=== PATIENT | male | born 1945 | race Caucasian/White ===

== ENCOUNTER 2024-01-28 14:57 | Emergency (ER) | payer MEDICARE, MEDICAID ==
[~2024-01-28] VITALS: Ht 167.6 cm; Wt 75.0 kg
[~2024-01-28 14:57] MED LIST: ATOR20TA PO; RIVA20TA PO; TAMS-11 PO
[2024-01-28 17:17] VITALS: O2SAT 99
[2024-01-28 19:24] LABS: BASOPHILS % 0.5 % (0.0-2.0); EOSINOPHILS % 0.6 % (0.0-5.0); HEMATOCRIT. 32.4 % (42.0-52.0); HEMOGLOBIN. 10.9 g/dL (14.0-18.0); LYMPHOCYTES % 19.4 % (20.0-50.0); MEAN CORPUSCULAR HEMOGLOBIN 33.6 pg (28.0-32.0); MEAN CORPUSCULAR HGB CONC 33.7 g/dL (31.0-37.0); MEAN CORPUSCULAR VOLUME 99.6 fL (80.0-94.0); MONOCYTES % 10.6 % (2.0-8.0); NEUTROPHILS % 68.9 % (40.0-76.0); PLATELET 224 x1000/uL (130-400); RED BLOOD CELL COUNT 3.25 mill/uL (4.7-6.1); WHITE BLOOD COUNT 8.5 x1000/uL (4.5-11.0)
[2024-01-28 19:35] LABS: INR 1.1; PROTHROMBIN TIME 11.7 sec (9.6-11.0)
[2024-01-28 19:41] LABS: POTASSIUM 4.5 mEq/L (3.5-5.1)
[2024-01-28 19:42] LABS: CALCIUM 9.1 mg/dL (8.7-10.4)
[2024-01-28 19:47] LABS: CREATININE 1.7 mg/dL (0.6-1.3)
[2024-01-28] MEDS ORDERED: HYDR-4001 MT (23:33)
[2024-01-28] MEDS ORDERED: LIDO1ADH23 TP (23:34)
[2024-01-28] MEDS: HYDROCODONE/ACETAMINOPHEN 5/325MG TABLET PO ONE (23:53)
[2024-01-28 23:58] VITALS: BP 129/64; PULSE 80; RESP 14; TEMP 37.05852; O2SAT 99
[2024-01-28] MEDS: LIDOCAINE 5% PATCH TOP STA (23:58)
== END 2024-01-29 00:02 | disposition home or self-care (01) ==
LOC: ER 14:57
DX: M19.071 Primary osteoarthritis, right ankle and foot (principal); I10 Essential (primary) hypertension; I48.91 Unspecified atrial fibrillation
CPT/HCPCS: 36415; 73562; 73590; 73610; 73630; 80048; 85025; 93970; 99284

== ENCOUNTER 2024-03-25 07:40 | Emergency (ER) | payer MEDICARE, MEDICAID ==
[~2024-03-25] VITALS: Ht 172.7 cm; Wt 91.0 kg
[~2024-03-25 07:40] MED LIST changes: +HYDR-4001 MT; +LIDO1ADH23 TP
[2024-03-25 07:45] VITALS: O2SAT 99
[2024-03-25 08:26] LABS: BASOPHILS % 0.7 % (0.0-2.0); DIFFERENTIAL COMMENT 0; EOSINOPHILS % 1.1 % (0.0-5.0); LYMPHOCYTES % 13.6 % (20.0-50.0); MEAN CORPUSCULAR HEMOGLOBIN 33.6 pg (28.0-32.0); MEAN CORPUSCULAR HGB CONC 32.3 g/dL (31.0-37.0); MEAN CORPUSCULAR VOLUME 103.9 fL (80.0-94.0); MEAN PLATELET VOLUME 7.6 fl (7.4-10.4); MONOCYTES % 7.5 % (2.0-8.0); NEUTROPHILS % 77.1 % (40.0-76.0); PLATELET 195 x1000/uL (130-400); RED BLOOD CELL COUNT 2.98 mill/uL (4.7-6.1); RED CELL DISTRIBUTION WIDTH 18.9 % (11.6-14.6); WHITE BLOOD COUNT 10.6 x1000/uL (4.5-11.0)
[2024-03-25 08:34] LABS: CHLORIDE 114 mEq/L (98-107); POTASSIUM 4.6 mEq/L (3.5-5.1); SODIUM 143 mEq/L (136-145)
[2024-03-25 08:35] LABS: CARBON DIOXIDE 23 mEq/L (21-32)
[2024-03-25 08:36] LABS: CALCIUM 9.2 mg/dL (8.7-10.4)
[2024-03-25 08:40] LABS: GLUCOSE 106 mg/dL (70-105); UREA NITROGEN BLOOD 19 mg/dL (9-23)
[2024-03-25 09:50] LABS: CLARITY URINE CLEAR (CLEAR); COLOR URINE DARK YELLOW (YELLOW); GLUCOSE URINE NEGATIVE (NEGATIVE); KETONES URINE NEGATIVE (NEGATIVE); LEUKOCYTE ESTERASE URINE NEGATIVE (NEGATIVE); NITRITE URINE NEGATIVE (NEGATIVE); OCCULT BLOOD URINE NEGATIVE (NEGATIVE); PH URINE 5.5 (4.5-8.0); PROTEIN URINE TRACE (NEGATIVE)
[2024-03-25] MEDS ORDERED: TOPUD MT (09:53)
[2024-03-25 10:12] LABS: WBC URINE NONE SEEN /hpf (0-2)
[2024-03-25 10:13] LABS: BACTERIA URINE NONE SEEN; RBC URINE NONE SEEN /hpf (0-2)
[2024-03-25 10:47] VITALS: BP 118/75; PULSE 98; RESP 18; TEMP 37.11408; O2SAT 99
== END 2024-03-25 10:46 | disposition home or self-care (01) ==
LOC: ER 07:40
DX: M25.571 Pain in right ankle and joints of right foot (principal); I10 Essential (primary) hypertension; Z79.899 Other long term (current) drug therapy
CPT/HCPCS: 36415; 73620; 80048; 81003; 85025; 99284

== ENCOUNTER 2024-04-24 14:30 | Emergency (ER) | payer MEDICARE, MEDICAID ==
[~2024-04-24] VITALS: Ht 167.6 cm; Wt 65.0 kg
[~2024-04-24 14:30] MED LIST changes: +TOPUD MT
[2024-04-24 14:36] VITALS: TEMP 98; O2SAT 78
[2024-04-24] MEDS ORDERED: COLC0.6C3 MT (19:12)
[2024-04-24 20:01] VITALS: BP 125/77; PULSE 98; RESP 16
[2024-04-24] MEDS: KETOROLAC 15MG/ML VIAL IM NR (20:01)
[2024-04-24] MEDS: COLCHICINE 0.6MG TABLET PO ONE (20:01)
== END 2024-04-24 21:22 | disposition home or self-care (01) ==
LOC: ER 14:30
DX: M10.9 Gout, unspecified (principal); I10 Essential (primary) hypertension; Z79.899 Other long term (current) drug therapy
CPT/HCPCS: 99283; 96372; L1830; J1885